=== PATIENT | female | born 1935 | race Caucasian/White ===

== ENCOUNTER → 2022-12-31 10:41 | Outpatient (REF) | payer MEDICARE, SELFPAY | LOC: WOUND 10:41 | PROVIDERS: ATTENDING PHYSICIAN Surgery; REFERRING PHYSICIAN Internal Medicine | DX: L97.822 Non-pressure chronic ulcer of other part of left lower leg with fat layer exposed (principal); I87.312 Chronic venous hypertension (idiopathic) with ulcer of left lower extremity; I87.2 Venous insufficiency (chronic) (peripheral); I89.0 Lymphedema, not elsewhere classified; G62.9 Polyneuropathy, unspecified | CPT/HCPCS: 11042; 99202; 99204 ==

== ENCOUNTER → 2023-02-17 11:39 | Outpatient (REF) | payer MEDICARE, SELFPAY | LOC: WOUND 11:39 | PROVIDERS: ATTENDING PHYSICIAN Surgery; REFERRING PHYSICIAN Internal Medicine | DX: L97.822 Non-pressure chronic ulcer of other part of left lower leg with fat layer exposed (principal); I87.312 Chronic venous hypertension (idiopathic) with ulcer of left lower extremity; I87.2 Venous insufficiency (chronic) (peripheral); I89.0 Lymphedema, not elsewhere classified; G62.9 Polyneuropathy, unspecified | CPT/HCPCS: 11042; 11045; 97597; 97598 ==

== ENCOUNTER → 2023-07-10 09:45 | Outpatient (REF) | payer MEDICARE, SELFPAY | LOC: OLABHEARBC 09:45 | PROVIDERS: ATTENDING PHYSICIAN Dermatology | DX: I87.312 Chronic venous hypertension (idiopathic) with ulcer of left lower extremity (principal) | CPT/HCPCS: 87070; 87205 ==

== ENCOUNTER 2023-07-22 06:21 | Inpatient (IN) | payer MEDICARE, SELFPAY ==
--- NOTE | 2023-05-27 12:16 | CM ---
Addendum entered by Promise Solis 06/24/23 09:26:
Patient's surgery date has changed to 07/22/23.
Original Note:
Patient is scheduled for an elective L THR on 07/01/23. Spoke with patient prior to surgery via telephone. Introduced role of Orthopedic Navigator. Patient reports that she lives alone at [facility] (one floor elevator accessible
apartment; no steps to enter). She has a daily caregiver from 9am- 5pm through [facility]. The caregiver assists with showering, LE dressing, meals and other household tasks. She is independent with bed mobility, transfers and ambulation using a
rollator. She also has a rolling walker, cane, shower seat, raised toilet seat with rails and hip kit. She has had VN services through [facility]. PCP is Dr. Genesis Aguilar.
Discussed orthopedic program and post surgical plans. Reviewed anticipated length of stay and that goal is for her to return home at discharge. Patient is going to look into increasing her care to 24 hours a day for at least the first week. She will
need VN services upon discharge.
Patient will complete online education.
Plan: Orthopedic Navigator will remain available to assist with the care of patient and will reassess discharge needs after surgery.
[2023-06-08 12:54] VITALS: BMI 20.2
[2023-06-08 14:10] LABS: Hematocrit 36.1 % (37.0-47.0); Hemoglobin 12.4 g/dL (12.0-16.0); Mean Corp Hgb Conc. 34.3 g/dL (33.0-37.0); Mean Corpuscular Hgb 35.4 pg (27.0-31.0); Mean Corpuscular Volume 103.1 fL (81.0-99.0); Platelet Count 195 10^3/uL (130-400); Red Cell Dist. Width 12.9 % (11.5-14.5); White Blood Cell Count 5.4 10^3/uL (4.8-10.8)
[2023-06-08 14:49] LABS: ALT (SGPT) 21 U/L (0-35); AST (SGOT) 31 U/L (14-36); Alkaline Phosphatase 81 U/L (38-126); Blood Urea Nitrogen 31 mg/dl (7-17); Calcium 9.2 mg/dl (8.4-10.2); Carbon Dioxide 29 mmol/L (22-30); Chloride 101 mmol/L (98-107); Estimated Creatinine Clearance 45 ml/min; Glucose 83 mg/dl (70-99); Potassium 4.7 mmol/L (3.5-5.1); Sodium 132 mmol/L (135-145); Total Bilirubin 0.6 mg/dl (0.2-1.3); Total Protein 6.3 g/dl (6.3-8.2); eGFR > 60.00
[2023-06-08 16:14] VITALS: BMI 20.2
[2023-07-08 13:46] VITALS: BMI 18.7
[2023-07-08 13:57] LABS: Hematocrit 35.5 % (37.0-47.0); Hemoglobin 12.3 g/dL (12.0-16.0); Mean Corp Hgb Conc. 34.6 g/dL (33.0-37.0); Mean Corpuscular Hgb 35.5 pg (27.0-31.0); Mean Corpuscular Volume 102.6 fL (81.0-99.0); Mean Platelet Volume 8.5 fL (7.4-10.4); Platelet Count 189 10^3/uL (130-400); Red Blood Cell Count 3.46 10^6/uL (4.20-5.40); Red Cell Dist. Width 12.2 % (11.5-14.5); White Blood Cell Count 7.4 10^3/uL (4.8-10.8)
[2023-07-08 14:11] LABS: ALT (SGPT) 18 U/L (0-35); AST (SGOT) 29 U/L (14-36); Albumin 3.8 g/dl (3.5-5.0); Alkaline Phosphatase 76 U/L (38-126); Blood Urea Nitrogen 31 mg/dl (7-17); Calcium 9.7 mg/dl (8.4-10.2); Carbon Dioxide 27 mmol/L (22-30); Chloride 98 mmol/L (98-107); Estimated Creatinine Clearance 43 ml/min; Glucose 97 mg/dl (70-99); Potassium 4.5 mmol/L (3.5-5.1); Sodium 131 mmol/L (135-145); Total Bilirubin 0.5 mg/dl (0.2-1.3); Total Protein 6.1 g/dl (6.3-8.2); eGFR > 60.00
[2023-07-08 14:45] VITALS: BMI 18.7
[2023-07-09 09:11] LABS: Glycohemoglobin (HgbA1c) 5.5 % (4.0-5.6)
[2023-07-22] VITALS (17 sets, daily range): BP systolic 101–135; BP diastolic 49–82; PULSE 82; O2SAT 98
[2023-07-22] MEDS: NORMOSOL-R 1000 IV (09:30)
[2023-07-22] MEDS: CELEBREX 200 MG PO (09:47)
[2023-07-22] MEDS: TYLENOL 650 MG PO ×3 (09:47→20:16)
[2023-07-22] MEDS: BACTROBAN NASAL 1 GRAM NASAL (09:48)
[2023-07-22] MEDS: ROXICODONE 5 MG PO (13:57)
--- NOTE | 2023-07-22 17:06 | PTCARENOTE ---
Pt arrived to [facility] [address] from PACU s/p L THR. Pt aquacel dressing C/D/I, NV intact. Pt states pain 5/10. Pt oriented to call richard and room, bed locked and in lowest position, call richard within reach.
[2023-07-22] MEDS: TYLENOL PO (17:23)
[2023-07-22] MEDS: ASPIRIN 325 MG PO (17:52)
[2023-07-22] MEDS: ROXICODONE 2.5 MG PO (17:55)
[2023-07-22] MEDS: DECADRON 4 MG PO (20:15)
[2023-07-22] MEDS: STERILE WATER FOR INJECTION 10 ML IV (20:16)
[2023-07-22] MEDS: MAXIPIME 1000 MG IV (20:16)
[2023-07-22] MEDS: FLORASTOR 250 MG PO (20:16)
[2023-07-22] MEDS: ULTRAM 25 MG PO (20:16)
[2023-07-22] MEDS: BACTROBAN 2% OINTMENT 1 APPLIC NASAL (20:16)
[2023-07-22] MEDS: PEPCID 20 MG PO (22:03)
[2023-07-23] MEDS: TYLENOL PO (00:56)
[2023-07-23 03:05] VITALS: BP 106/52
[2023-07-23] MEDS: TYLENOL 650 MG PO ×4 (03:24→16:02)
[2023-07-23] MEDS: MAXIPIME 1000 MG IV (03:25)
[2023-07-23] MEDS: STERILE WATER FOR INJECTION 10 ML IV (03:25)
[2023-07-23 07:02] VITALS: BP 99/51
[2023-07-23] MEDS: FLORASTOR 250 MG PO (08:22)
[2023-07-23] MEDS: GENTAMICIN 0.1% CREAM 1 APPLIC TOPICAL (08:22)
[2023-07-23] MEDS: DECADRON 4 MG PO (08:22)
[2023-07-23] MEDS: BACTROBAN 2% OINTMENT 1 APPLIC NASAL (08:22)
[2023-07-23] MEDS: ULTRAM 25 MG PO (08:23)
[2023-07-23] MEDS: ASPIRIN 325 MG PO (08:24)
--- NOTE | 2023-07-23 09:02 | CM ---
Addendum entered by Promise Solis 07/23/23 13:44:
Patient did well with therapy. Reviewed discharge plans with her. She will call her caregiver to have her meet her at home. She will also update her son in law who is taking her home.
Original Note:
Reviewed chart and held rounds with PT, OT and nursing. Patient admitted as planned for elective L THR. Met with patient at bedside. Confirmed information previously obtained for assessment. Also discussed discharge plans. The plan is for patient to
return home at discharge. Her caregiver will be staying with her for four days. Reviewed VN services including start of care (tentatively 07/23), services to be ordered (PT, OT, SN) and frequency/duration of services. Options list provided and PAC
data reviewed. Patient selects VN.
Patient has all needed DME at home.
VN referral was completed and sent to [facility] through [employer] with request for start of care on 07/23. Confirmation received of their ability to accept case. mortgage processing clerk to fax discharge instructions to [facility] when complete.
Patient will use [facility] pharmacy for discharge prescriptions.
--- NOTE | 2023-07-23 10:12 | WOUNDNOTE ---
[facility] RN note: Patient admitted for left hip arthoplasty
See H&P for complete history.
PMH: Left hip osteoarthritis, lymphedema, uterine caner with radiation proctitis, hearing impaired.
Wound Location and type/assessment: Patient admitted with: Chronic left leg wound, lymphedema. Patient follows with house worker general. Wound is necrotic appearing with scant amount of drainage. Patient has services for wound care. She wears
prescribed Farrow wraps. Heels intact.
Appetite: Good
Pressure redistribution devices in place: Versa Care with Accumax, heels off-loaded with pillows under calves. Patient able to turn with assistance. Ambulates at home with caregiver.
Plan: Patient said wound care has been Gentamycin cream with adaptic and Qwick. Patient plans to continue following with Implementation Technician after discharge. Compression applied as ordered. Will confirm orders with hospitalist and update nurse. Updated
care plan and will follow as needed.
[2023-07-23 10:24] VITALS: BP 105/80; PULSE 89
--- NOTE | 2023-07-23 10:39 | WOUNDNOTE ---
[facility] RN note: Patient admitted for left hip arthoplasty
See H&P for complete history.
PMH: Left hip osteoarthritis, lymphedema, uterine caner with radiation proctitis, hearing impaired.
Wound Location and type/assessment: Patient admitted with: Chronic left leg wound, lymphedema. Patient follows with park aide. Wound is necrotic appearing with scant amount of drainage. Patient has services for wound care. She wears
prescribed Farrow wraps. Heels and sacrum intact.
Appetite: Good
Pressure redistribution devices in place: Versa Care with Accumax, heels off-loaded with pillows under calves, Air cushion placed in chair by this writer technical publications. Patient able to turn with assistance. Ambulates at home with caregiver and walker.
Plan: Patient said wound care has been Gentamycin cream with adaptic and Qwick. Patient plans to continue following with Kitchen And Bath Designer after discharge. Compression applied as ordered. Will confirm orders with hospitalist and update nurse. Updated
care plan and will follow as needed.
--- NOTE | 2023-07-23 12:41 | W.PN.ORTHO ---
Today's Communication / Plan
-
d/c
Assessment
.
Distal Motor Intact: Yes
Dressing:
Clean, dry and intact.
Assessment:
Chronic stasis dermatitis with recent cellulitis culturing MSSA, Pseudomonas-repeat culture clear s/p oral and topical abx per derm--IV araceli-op abx was changed to Rocephin for this coverage
Plan
.
Surgery / Date: Cande Carr 07/22/23
DVT Prophylaxis: Aspirin
Activity:
Out of bed.
PT/OT
Discharge Plan: Home w/ VN
Subjective
.
.:
Patient resting comfortably.
Vital Signs and Labs
.
Vital Signs and Labs:
Lab Results
07/08/23 13:31
07/08/23 13:31
Temp Pulse Resp BP Pulse Ox
97.2 F 84 18 99/51 99
07/23/23 07:02 07/23/23 07:02 07/23/23 07:02 07/23/23 08:20 07/23/23 08:00
Non-invasive Hgb result: 13.1
Physical Exam
-
HEENT: No pallor, cyanosis, or jaundice. Throat clear.
NECK: Supple. No JVD.
RESPIRATORY: Lungs clear to auscultation.
CVS: S1, S2 normal. RRR.� No murmur, rub or gallop.
ABDOMEN: Soft, non-tender. No distension. BS+/normal.
EXTREMITIES: strength equal, no calf pain with palpation
DRYING MACHINE RECEIVER: AOx3. No focal deficits. veterinarian grossly intact
--- NOTE | 2023-07-23 12:52 | W.DS.TRANS ---
DC Summary - Take Off Worker
-
Discharge Instructions:
Sleep Apnea Risk Low
Discharge Diagnosis/Procedures Cande Carr 07/22/23
Diet As tolerated
Activity With Walker
Driving Restrictions No driving
Bathing Restrictions OK to Shower
Other Services VN,PT,OT
Instructions:
Stand-Alone Forms: Total Hip/Knee Replacement D/C
Changes to Home Medications: Yes
Discharge Medications:
DC Medications w/original date entered in [employer]
cholecalciferol (vitamin D3) 125 mcg (5,000 unit) tablet (Vitamin D3) 50 mcg PO DAILY Supplement 09/17/22
loperamide 2 mg capsule 2 mg PO DAILY PRN diarrhea #0 caps 01/21/23
Multivitamin Womens Gummy 1 gummy PO DAILY Supplement 06/01/23
biotin 2,500 mcg capsule 2,500 mcg PO DAILY Supplement 06/01/23
calcium-vitamin D3-vitamin K 500 mg-100 unit-40 mcg chewable tablet 1 tab PO DAILY Supplement 06/01/23
pentoxifylline 400 mg tablet,extended release 400 mg PO BID circulation 06/01/23
vitamin B complex 1 cap PO DAILY Supplement 06/01/23
fluconazole 200 mg tablet 200 mg PO MOFR Infection 07/03/23
gentamicin 0.1 % topical ointment 1 applic topical DAILY Infection 07/03/23
mupirocin 2 % topical ointment 1 applic topical BID infection prevention #1 tube 07/08/23
Saccharomyces boulardii 250 mg capsule (Florastor) 250 mg PO BID #1 cap 07/23/23
acetaminophen 500 mg tablet 1,000 mg PO QID #0 tabs 07/23/23
aspirin 325 mg tablet 325 mg PO DAILY blood clot prevention #1 tab 07/23/23
cefadroxil 500 mg capsule 500 mg PO BID infection prevention #14 caps 07/23/23
dexamethasone 4 mg tablet 4 mg PO BID inflammation #6 tabs 07/23/23
docusate sodium 100 mg capsule (Colace) 100 mg PO BID stool softner #1 cap 07/23/23
furosemide 20 mg tablet (Lasix) 40 mg PO DAILY Fluid Retention/Swelling #0 tabs 07/23/23
gabapentin 300 mg capsule 300 mg PO HS sleep/pain #10 caps 07/23/23
magnesium hydroxide 400 mg/5 mL oral suspension (Milk of Magnesia) 30 ml PO HS PRN Constipation #1 mL 07/23/23
meloxicam 15 mg tablet 15 mg PO DAILY anti-inflammatory #14 tabs 07/23/23
tramadol 50 mg tablet 50 - 100 mg PO Q6H PRN 1 tab moderate, 2 tabs if pain severe #30 tabs 07/23/23
Home Medication Changes
cefadroxil 500 mg capsule 500 mg PO BID infection prevention #14 caps 07/23/23
dexamethasone 4 mg tablet 4 mg PO BID inflammation #6 tabs 07/23/23
gabapentin 300 mg capsule 300 mg PO HS sleep/pain #10 caps 07/23/23
meloxicam 15 mg tablet 15 mg PO DAILY anti-inflammatory #14 tabs 07/23/23
tramadol 50 mg tablet 50 - 100 mg PO Q6H PRN 1 tab moderate, 2 tabs if pain severe #30 tabs 07/23/23
Pending Results: No
[2023-07-23 13:40] VITALS: BP 109/52; PULSE 81; O2SAT 98
[2023-07-23 15:22] VITALS: BP 90/45
== END 2023-07-23 16:55 | disposition home health service (06) | DRG 470 ==
LOC: 2 SOUTH 06:21
PROVIDERS: ADMITTING PHYSICIAN Orthopaedic Surgery; FAMILY PHYSICIAN Internal Medicine
PROC: 0SRB039 Replacement of Left Hip Joint with Ceramic Synthetic Substitute, Cemented, Open Approach (ICD-10-PCS; 2023-07-22)
DX: M16.12 Unilateral primary osteoarthritis, left hip (principal); Z87.891 Personal history of nicotine dependence; I89.0 Lymphedema, not elsewhere classified; I87.2 Venous insufficiency (chronic) (peripheral)
CPT/HCPCS: 36415; 73502; 80053; 83036; 85027; 87070; 93005; 97110; 97116; 97162; 97167; 97530; C1713; C1776